=== PATIENT | female | born 1970 | race African-American/Black ===

== ENCOUNTER 2016-09-09 15:59 | Emergency (ER) | payer BC, MEDICAID ==
[~2016-09-09] VITALS: Ht 160 cm; Wt 110.0 kg
[2016-09-09] MEDS ORDERED: KETOROLAC 60MG/2ML VIAL IM ONE (18:45)
[2016-09-09 21:54] VITALS: BP 145/86
== END 2016-09-09 21:55 | disposition home or self-care (01) ==
LOC: ER 17:52
DX: M25.562 Pain in left knee (principal); W01.0XXA Fall on same level from slipping, tripping and stumbling without subsequent striking against object, initial encounter; Y93.89 Activity, other specified; Y92.89 Other specified places as the place of occurrence of the external cause; Y99.8 Other external cause status
CPT/HCPCS: 73562; 81025; 96372; 99284; J1885; L1830; Z7610